=== PATIENT | male | born 1960 ===

== ENCOUNTER 2024-03-23 07:22 | Emergency (ER) | payer BC, SELFPAY ==
--- NOTE | 2024-03-23 | DI.RAD_ITS ---
Exam(s) XR KNEE RT 3V AP,LAT,JOHN EXAM: XR knee RT 3V CLINICAL HISTORY: . TECHNIQUE: 2D digital imaging was performed of the right knee. Three views obtained. AP, lateral an d PA tunnel views were obtained. COMPARISON: No exams were available for comparison FINDINGS: BONES: No acute fracture is present. No bony destructive lesion is seen. There is a small enthesophyt e at the anterior patella. JOINTS: The knee is normally aligned. There is a very small joint effusion. Small osteophytes are se en at the posterior patella. SOFT TISSUE: Vascular calcifications are present. IMPRESSION: Mild degenerative changes at the patellofemoral joint. Very small joint effusion. DATA REPOSITORY: RADIATION DOSE DELIVERED:
--- NOTE | 2024-03-23 11:13 | W.EDPROG ---
Date of service: 03/23/24 Time of Service: 11:14 Medical Decision Making Patient visit occurred during EMR downtime. Please see paper chart for details. Quality:SDOH Health Related Social Needs: No Data to Display Discharge Plan Disposition Patient Disposition: Home Condition: Stable Discharge Details Clinical Impression: Acute pain of right knee Primary Care Provider: Abdirahman Zambrano ED Provider: Terri Cuevas Home Meds and New Rx's Prescriptions: No Action methylprednisolone 4 MG tablets,dose pack 4 mg PO DIRECTED Qty: 1 0RF oxycodone-acetaminophen 1 TAB tablet 1 tab PO HS PRN PRNQty: 10 0RF cyclobenzaprine 10 MG tablet 10 mg PO TID PRN PRNQty: 14 0RF Discharge Instructions Additional Instructions: ANTONIO wtih NSAIDs, ortho follow up
== END 2024-03-23 10:49 | disposition home or self-care (01) ==
PROVIDERS: Emergency Provider Emergency Medicine; PCP Neuromusculoskeletal Medicine & OMM
DX: M25.561 Pain in right knee (principal); M25.461 Effusion, right knee
CPT/HCPCS: 00123; 73562; 99283

== ENCOUNTER 2024-06-22 02:11 | Outpatient (CLI) | payer BC, SELFPAY ==
--- NOTE | 2024-06-22 08:45 | DI.MRI_ITS ---
Exam(s) MR LOWER JOINT RT WO EXAM: MR LOWER JOINT RT WO CLINICAL HISTORY: R KNEE PAIN,TEAR MEDIAL MENISCUS,[id number]. TECHNIQUE: Multiplanar multisequence MRI was performed. COMPARISON: CR XR KNEE RT 3V AP,LAT,JOHN from 03/23/2024 FINDINGS: BONES: There is no fracture or contusion pattern. Degenerative signal changes at the patellar apex. JOINTS: No joint effusion is present. Articular cartilage: Patellofemoral joint: Severe cartilage thinning of the patellar apex and medial facet extending down to bone. Medial femoral tibial joint: Articular cartilage is unremarkable. Lateral femoral tibial joint: Articular cartilage is unremarkable. LIGAMENTS: Anterior Cruciate: Unremarkable. Posterior Cruciate: Unremarkable. Medial Collateral:Surrounding fluid but no visible focal tear. Lateral Collateral ligament complex: Unremarkable. TENDONS: Extensor mechanism: Unremarkable. Medial retinaculum: Unremarkable. Lateral retinaculum: Unremarkable. Popliteus: Unremarkable. MENISCI: The medial meniscus shows a radial tear at the posterior meniscal root. There is also abnormal intra substance signal in the posterior horn and body. The lateral meniscus is unremarkable. MUSCLES: Unremarkable. SOFT TISSUES: Anterior soft tissue edema. Moderate joint effusion. Perkins's cyst measuring 3.9 cm in length.. IMPRESSION: Tears of the posterior horn and body of the medial meniscus. Question medial collateral ligament sprain. 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 Small joint effusion and small Perkins cyst. DATA REPOSITORY:
== END 2024-06-22 02:31 ==
LOC: DI 02:12
PROVIDERS: PCP Family Medicine; Visit Provider Student in an Organized Health Care Education/Training Program
DX: S83.241A Other tear of medial meniscus, current injury, right knee, initial encounter (principal); X58.XXXA Exposure to other specified factors, initial encounter
CPT/HCPCS: 73721